=== PATIENT | male | born 1965 ===

== ENCOUNTER → 2017-08-07 14:04 | Outpatient (CLI) | payer OTHER ==
[~2017-08-07 14:04] MED LIST: COZAAR50 MG PO; SIMVASTATIN20 MG PO
== END | disposition home or self-care (01) ==
LOC: EKG 14:04
DX: R22.0 Localized swelling, mass and lump, head (principal); Z01.810 Encounter for preprocedural cardiovascular examination

== ENCOUNTER 2017-08-14 05:37 | Day surgery (SDC) | payer OTHER | END 2017-08-14 10:00 | disposition home or self-care (01) | LOC: CIR.AMB 05:37 | DX: L72.0 Epidermal cyst (principal) ==